=== PATIENT | female | born 1975 | race Caucasian/White ===

== ENCOUNTER 2021-05-22 09:51 | Observation (INO) | payer OTHER, SELFPAY ==
[~2021-05-22] VITALS: Ht 162.6 cm; Wt 90.7 kg
[2021-05-22 10:00] VITALS: BP 138/94
--- NOTE | 2021-05-22 10:08 | NUR ---
PT AMBULATED TO ER BED 5.
--- NOTE | 2021-05-22 10:10 | NUR ---
pt ambulated to bed 05.
--- NOTE | 2021-05-22 10:12 | NUR ---
46 y/o female c/o chest pain x 30 minutes while [address] home from work. Pt states pain 7/10 describes as pressure/constant, radiating down left arm. +Lightheadedness, +tingling/numbness to left hand Denies N/V, dizziness, fever/chills. Reports family history of heart attacks. Denies PMH Allergies: Morphine
--- NOTE | 2021-05-22 10:52 | NUR ---
Dr. Zapata at pt bedside for further evaluation.
[2021-05-22] MEDS ORDERED: NITROGLYCERIN 0.4 MG TAB SL ONE (11:00)
[2021-05-22] MEDS ORDERED: ASPIRIN 325 MG TAB PO ONE (11:00)
--- NOTE | 2021-05-22 11:08 | NUR ---
pyrotechnician at pt bedside.
--- NOTE | 2021-05-22 11:14 | NUR ---
BP 102/54, HR 74. 2nd nitro SL given at this time. made aware.
[2021-05-22 11:20] LABS: BASOPHILS % (AUTO) 0.5 % (0.0-2.0); EOSINOPHILS # (AUTO) 0.1 K/uL (0-0.4); EOSINOPHILS % (AUTO) 1.9 % (0.0-4.0); HEMATOCRIT 25.2 % (36-48); HEMOGLOBIN 7.3 g/dL (12.0-16.0); LYMPHOCYTES # (AUTO) 1.4 K/uL (2.5-16.5); LYMPHOCYTES % (AUTO) 20.5 % (20.5-51.1); MEAN CORPUSCULAR HEMOGLOBIN 18 pg (27-31); MEAN CORPUSCULAR HGB CONC 29 g/dL (33-37); MEAN CORPUSCULAR VOLUME 62.4 fL (80-94); MONOCYTES # (AUTO) 0.5 K/uL (0.8-1.0); MONOCYTES % (AUTO) 7.5 % (1.7-9.3); NEUTROPHILS # (AUTO) 4.9 K/uL (1.8-7.7); NEUTROPHILS % (AUTO) 69.6 % (42.2-75.2); PLATELET COUNT (AUTO) 463 K/uL (140-450); RED BLOOD CELL COUNT(AUTO) 4.04 MIL/uL (4.20-5.40); RED CELL DISTRIBUTION WIDTH 19.5 % (11.6-13.7)
--- NOTE | 2021-05-22 11:21 | NUR ---
BP 107/59, HR 72. 3rd nitro SL given at this time. made aware.
--- NOTE | 2021-05-22 11:22 | NUR ---
X-RAY AT BEDSIDE
[2021-05-22 11:39] LABS: ALBUMIN 3.7 g/dL (3.4-5.0); ANION GAP 12.1 (8-16); CARBON DIOXIDE 27.8 mmol/L (21-32); CREATININE 0.8 mg/dL (0.6-1.3); POTASSIUM 3.9 mmol/L (3.5-5.1); TOTAL BILIRUBIN 0.3 mg/dL (0.0-1.0)
--- NOTE | 2021-05-22 12:00 | NUR ---
Pt resting in bed, HOB elevated, VSS, will continue to monitor.
--- NOTE | 2021-05-22 12:21 | NUR ---
DR CEE AT BEDSIDE REEVALUATING PATIENT
--- NOTE | 2021-05-22 12:43 | NUR ---
Spoke with [facility] labor union business representative Luh for authorization for admitting under observation at this time.
--- NOTE | 2021-05-22 12:56 | NUR ---
Collected AJGJIT TIRADO, walked to lab.
[2021-05-22] MEDS ORDERED: NACL 0.9% 1,000 ML IV ONE (13:00)
--- NOTE | 2021-05-22 13:26 | NUR ---
IV established to left AC 20G, good blood return. Provided lunch tray, HOB elevated, VSS, will continue to monitor.
--- NOTE | 2021-05-22 14:03 | NUR ---
Pt resting, HOB lowered, visible equal rise and fall, VSS, will continue to monitor.
--- NOTE | 2021-05-22 15:34 | NUR ---
Gave report to GABRIELA Lopez for pending admission 125A. ETA 10minutes.
[2021-05-22 15:43] VITALS: BP 124/52
--- NOTE | 2021-05-22 15:43 | NUR ---
RECEIVED PATIENT REPORT FROM ER NURSE VIA TELEPHONE. AWAITING FOR PATIENT TO ARRIVE IN 10 MINS
--- NOTE | 2021-05-22 15:43 | NUR ---
RECEIVED PATIENT FROM ER NURSE. PATIENT ADMITTED FOR CHEST PAIN, ANEMIA. PT IS AO X4, ABLE TO MAKE NEEDS KNOWN. RESPIRATIONS EVEN AND UNLABORED. ON ROOM AIR WITH O2 SATURATION AT 100%. NO DISTRESS NOTED. SKIN IS WARM, INTACT, DRY, AND NON-DIAPHORETIC. IV SITE ON LAC 20G. INFUSING NS @ 60 ML/HR. INTACT AND PATENT. ABD SOFT, FLAT, AND NON-DISTENDED. BOWEL SOUNDS ACTIVE IN ALL FOUR QUADRANTS. PATIENT IS UNDER OBSERVATIONS. PLAN OF CARE DISCUSSED. SAFETY PRECAUTIONS IN PLACE. BEDSIDE IN LOW POSITION. CALL LIGHT WITHIN REACH. WILL CONTINUE TO MONITOR.
--- NOTE | 2021-05-22 15:50 | NUR ---
Patient will be admitted to care of Dr. Nabeel Wiggins. Admited to telemetry. Will go to room 125A. Belongings list completed. Report to GABRIELA Lopez.
--- NOTE | 2021-05-22 16:30 | NUR ---
CARDIO MD AT PATIENT'S BEDSIDE DISCUSSING CXR AND LAB RESULTS WITH PATIENT.
--- NOTE | 2021-05-22 18:00 | NUR ---
VISITOR AT PATIENT'S BEDSIDE. PATIENT IS STABLE AND EATING DINNER. NO DISTRESS NOTED. WILL CONTINUE TO MONITOR.
--- NOTE | 2021-05-22 19:30 | NUR ---
ENDORSED TO KINESIOLOGIST NURSE FOR CONTINUITY OF CARE. PT IS STABLE.
[2021-05-22] MEDS ORDERED: POTASSIUM CHLORIDE 10 MEQ TABER PO PRN (19:45)
[2021-05-22] MEDS ORDERED: HYDROcodone/APAP 7.5/325 MG 1 TAB PO PRN (19:45)
[2021-05-22] MEDS: NACL 0.9% 1,000 ML IV SCH (19:45)
[2021-05-22] MEDS ORDERED: ZOLPIDEM 5 MG TAB PO PRN (19:45)
[2021-05-22] MEDS ORDERED: DOCUSATE SODIUM 100 MG GELCAP PO PRN (19:45)
[2021-05-22] MEDS ORDERED: guaiFENesin DM 200/20 MG-10 ML 10 ML UDC PO PRN (19:45)
[2021-05-22] MEDS ORDERED: ONDANSETRON 4 MG/2 ML VIAL IM/IVP PRN (19:45)
[2021-05-22] MEDS ORDERED: ACETAMINOPHEN 325 MG TAB PO PRN (19:45)
[2021-05-22] MEDS ORDERED: NITROGLYCERIN 0.4 MG TAB SL PRN (19:45)
[2021-05-22 20:00] VITALS: BP 115/47
--- NOTE | 2021-05-22 20:00 | NUR ---
RECEIVED BEDSIDE REPORT FROM DAY RN EARLIER REGARDING THE PATIENT FOR CONTINUITY OF CARE. RECEIVED PATIENT A/A/OX4, LAYING IN BED NOT IN ANY DISTRESS. NO COMPLAIN AT THIS TIME. PATIENT DENIES ANY CHEST PAIN, DIZZINESS AND PALPITATIONS. VSS, AFEBRILE, SATING 100% ON RA. PATIENT VERBALIZED UNDERSTANDING WITH POC. WILL CONTINUE MONITORING AND POC. CALL LIGHT WITHIN REACH.
[2021-05-22 21:05] LABS: CHOL/HDL RATIO 3.3 (1-4.5); FREE T4 (FREE THYROXINE) 0.79 ng/dL (0.76-1.46); MAGNESIUM 1.7 mg/dL (1.8-2.4); PHOSPHORUS 2.8 mg/dL (2.5-4.9); THYROID STIMULATING HORMONE 2.04 uIU/mL (0.34-3.74)
[2021-05-22 21:10] LABS: PROTHROMBIN TIME 9.7 secs (10.8-13.4)
[2021-05-22] MEDS: METOPROLOL 25 MG TAB PO SCH (21:18)
[2021-05-22] MEDS ORDERED: CRUSHER, PILL MC ONE (21:20)
--- NOTE | 2021-05-22 22:00 | NUR ---
ADMINISTERED ALL THE SCHEDULED MEDICATIONS ORDERED. EDUCATION REGARDING THE MEDICATIONS PROVIDED. NO ADVERSE DRUG REACTION NOTED AND NO COMPLAIN FROM THE PATIENT. WILL CONTINUE OBSERVATION.
[2021-05-23] VITALS: BP 98/53
--- NOTE | 2021-05-23 | NUR ---
PATIENT VITAL SIGNS STABLE, AFEBRILE, SATING 99% ON RA. SINUS BRADYCARDIA ON CARDIAC. MONITOR, HR-57. NO COMPLAIN OF PAIN AT THIS TIME. CALL LIGHT WITHIN REACH.
--- NOTE | 2021-05-23 02:00 | NUR ---
PATIENT ASLEEP AT THIS TIME. VISIBLE CHEST RISE AND FALL NOTED. NOT IN ANY DISTRESS AND NO COMPLAIN AT THIS TIME. SAFETY IN PLACED.
[2021-05-23] MEDS: NACL 0.9% 1,000 ML IV SCH ×2 (02:26→17:31)
[2021-05-23 04:00] VITALS: BP 110/56
--- NOTE | 2021-05-23 04:00 | NUR ---
PATIENT VITAL SIGNS STABLE, AFEBRILE, SATING 99% ON RA. SINUS BRADYCARDIA ON CARDIAC. MONITOR, HR-54. NO COMPLAIN OF PAIN AT THIS TIME. CALL LIGHT WITHIN REACH.
--- NOTE | 2021-05-23 06:30 | NUR ---
PATIENT STABLE. NO ACUTE EVENT THROUGHOUT THE NIGHT. NOT IN ANY DISTRESS AND NO COMPLAIN AT THIS TIME. ALL NEEDS ATTENDED CALL LIGHT WITHIN REACH. WILL ENDORSE THE PATIENT TO THE ONCOMING RN FOR CONTINUITY OF CARE.
[2021-05-23 06:37] LABS: BASOPHILS # (AUTO) 0.1 K/uL (0.00-0.22); EOSINOPHILS # (AUTO) 0.2 K/uL (0-0.4); EOSINOPHILS % (AUTO) 3.9 % (0.0-4.0); HEMATOCRIT 26.3 % (36-48); HEMOGLOBIN 7.5 g/dL (12.0-16.0); LYMPHOCYTES # (AUTO) 1.9 K/uL (2.5-16.5); LYMPHOCYTES % (AUTO) 34.3 % (20.5-51.1); MEAN CORPUSCULAR HEMOGLOBIN 18 pg (27-31); MEAN CORPUSCULAR HGB CONC 29 g/dL (33-37); MEAN CORPUSCULAR VOLUME 63.1 fL (80-94); MONOCYTES # (AUTO) 0.4 K/uL (0.8-1.0); MONOCYTES % (AUTO) 6.7 % (1.7-9.3); NEUTROPHILS # (AUTO) 3.1 K/uL (1.8-7.7); NEUTROPHILS % (AUTO) 54.1 % (42.2-75.2); PLATELET COUNT (AUTO) 419 K/uL (140-450); RED BLOOD CELL COUNT(AUTO) 4.17 MIL/uL (4.20-5.40); RED CELL DISTRIBUTION WIDTH 19.6 % (11.6-13.7); WHITE BLOOD COUNT (AUTO) 5.6 K/uL (4.8-10.8)
[2021-05-23 06:44] LABS: ANION GAP 12.2 (8-16); CARBON DIOXIDE 24.7 mmol/L (21-32); CREATININE 0.7 mg/dL (0.6-1.3); POTASSIUM 3.9 mmol/L (3.5-5.1)
--- NOTE | 2021-05-23 06:58 | NUR ---
PATIENT HAS BEEN SCREENED AND CATEGORIZED MODERATE NUTRITION RISK. PATIENT WILL BE SEEN WITHIN 3-5 DAYS OF ADMISSION. 05/25/21-05/27/21 SCOTT DINERO MS, RDN
--- NOTE | 2021-05-23 07:15 | NUR ---
RECEIVED BEDSIDE REPORT FROM NURSE FOR CONTINUITY OF CARE. PT IS AWAKE AND ALERT. A&OX4, SPEAKING APPROPRIATELY. ON RA WITH BREATHING UNLABORED. PT IS AMBULATORY INDEPENDENTLY. SKIN IS WARM, DRY, AND INTACT. IV IS IN THE LEFT AC 20 GAUGE RUNNING NS AT 60 ML PER HOUR PER ORDER. PT IS STABLE. PLAN OF CARE DISCUSSED.
--- NOTE | 2021-05-23 07:20 | NUR ---
ENDORSED THE PATIENT TO RN'S JAVIER AND LUKE FOR CONTINUITY OF CARE. PATIENT STABLE. SIGNING OFF.
[2021-05-23 08:00] VITALS: BP 100/44
[2021-05-23] MEDS: METOPROLOL 25 MG TAB PO SCH ×2 (09:00→20:58)
[2021-05-23] MEDS: ECOTRIN 81 MG TABEC PO SCH (09:05)
[2021-05-23] MEDS: PANTOPRAZOLE 40 MG TABEC PO SCH (09:06)
--- NOTE | 2021-05-23 09:30 | NUR ---
FAMILY AT BEDSIDE TALKING WITH PT. PT IS A&OX4. NO RESPIRATORY DISTRESS NOTED. PT DENIES PAIN. PT IS STABLE.
--- NOTE | 2021-05-23 10:10 | NUR ---
BREAKFAST TRAY WAS DELIVERED. PT IS NOW EATING BREAKFAST. NO DISTRESS NOTED. MORE FAMILY MEMBERS AT BEDSIDE VISITING.
[2021-05-23 12:00] VITALS: BP 110/49
--- NOTE | 2021-05-23 12:00 | NUR ---
PT IS AWAKE, TALKING AT BEDSIDE TO VISITORS. NO DISTRESS NOTED. PT DENIES CHEST PAIN OR DIZZINESS. NO SOB NOTED. PT IS STABLE.
[2021-05-23] MEDS: SODIUM FERRIC GLUCONATE 125 MG in NACL 0.9% 100 ML IV SCH (13:25)
--- NOTE | 2021-05-23 13:57 | NUR ---
PT IS STABLE. PT STATES SHE IS OKAY AT THIS TIME. BREATHING IS UNLABORED ON RA. IV FLUIDS ARE INFUSING ORDERED. BED IS IN THE LOWEST POSITION AND CALL LIGHT IS WITHIN REACH. WILL MONITOR.
--- NOTE | 2021-05-23 15:45 | NUR ---
PT IS SLEEPING. CHEST RISE AND FALL IS SYMMETRICAL. NO SIGN OF PAIN OR DISTRESS. IV FLUIDS ARE INFUSING ORDERED. PT IS STABLE.
[2021-05-23 16:00] VITALS: BP 106/49
--- NOTE | 2021-05-23 17:37 | NUR ---
ROUNDED ON PT. ASKED IF SHE HAD A BM YET TO COLLECT FOR OCCULT STOOL. PT DENIED HAVING A BM. PT IS STABLE AT THIS TIME. DENIES CHEST PAIN OR LIGHT HEADEDNESS. NO RESPIRATORY DISTRESS NOTED. FAMILY AT BEDSIDE. WILL MONITOR PT.
--- NOTE | 2021-05-23 19:27 | NUR ---
ENDORSED PT TO ARTIFICIAL LOG MACHINE OPERATOR NURSE FOR CONTINUITY OF CARE. PT IS STABLE AT THIS TIME. PLAN OF CARE DISCUSSED.
--- NOTE | 2021-05-23 19:28 | NUR ---
RECEIVED PATIENT REPORT FROM DAYSHIFT NURSE AT BEDSIDE. PATIENT IS AWAKE, RESTING COMFORTABLY ON THE BED, FAMILY MEMBER ON THE BEDSIDE. PATIENT ON ROOM AIR, NO SIGNS OF DISTRESS, SAFETY MEASURE IMPLEMENTED, CALL LIGHT WITHIN REACH.
[2021-05-23 20:00] VITALS: BP 107/44
[2021-05-23] MEDS ORDERED: ATORVASTATIN 20 MG TAB PO SCH (21:00)
--- NOTE | 2021-05-23 21:55 | NUR ---
SCHEDULED MEDICATIONS GIVEN, PT IS AWAKE, NO SIGNS OF DISTRESS, ON ROOM AIR, RESTING COMFORTABLY ON THE BED, SAFETY MEASURES IMPLEMENTED, AND CALL LIGHT WITHIN REACH.
[2021-05-24] VITALS: BP 114/51
--- NOTE | 2021-05-24 00:37 | NUR ---
SCHEDULED MEDICATION GIVEN, PATIENT ASLEEP, VITALS SIGNS STABLE, ROOM AIR, AFEBRILE, NO SIGNS OF DISTRESS, SAFETY MEASURES IMPLEMENTED, CALL LIGHT WITHIN REACH.
--- NOTE | 2021-05-24 02:00 | NUR ---
PATIENT ASLEEP, AFEBRILE, ROOM AIR, NO SIGNS OF DISTRESS, SAFETY MEASURE IMPLEMENTED, CALL LIGHT WITHIN REACH.
[2021-05-24 04:00] VITALS: BP 104/42
--- NOTE | 2021-05-24 04:00 | NUR ---
PATIENT VITAL SIGNS, STABLE, AFEBRILE, SATING 96% ON RA. SINUS BRADYCARDIA ON SUPERVISOR IN CHARGE, HR- 57. NO COMPLAIN OF PAIN AT THIS TIME. CALL LIGHT WITHIN REACH.
--- NOTE | 2021-05-24 06:10 | NUR ---
NO ACUTE EVENT THROUGHOUT THE NIGHT. PATIENT STABLE. NOT IN ANY DISTRESS AND NO COMPLAIN AT THIS TIME. ALL NEEDS ATTENDED. CALL LIGHT WITHIN REACH. WILL ENDORSE THE PATIENT TO THE ONCOMING RN FOR CONTINUITY OF CARE.
[2021-05-24 06:20] LABS: ANION GAP 11.5 (8-16); CARBON DIOXIDE 25.1 mmol/L (21-32); CREATININE 0.7 mg/dL (0.6-1.3); POTASSIUM 3.6 mmol/L (3.5-5.1)
[2021-05-24 06:47] LABS: BASOPHILS % (AUTO) 0.5 % (0.0-2.0); EOSINOPHILS # (AUTO) 0.2 K/uL (0-0.4); EOSINOPHILS % (AUTO) 2.9 % (0.0-4.0); HEMATOCRIT 25.9 % (36-48); HEMOGLOBIN 7.3 g/dL (12.0-16.0); LYMPHOCYTES % (AUTO) 36.9 % (20.5-51.1); MEAN CORPUSCULAR HEMOGLOBIN 18 pg (27-31); MEAN CORPUSCULAR HGB CONC 28 g/dL (33-37); MEAN CORPUSCULAR VOLUME 64.1 fL (80-94); MONOCYTES # (AUTO) 0.4 K/uL (0.8-1.0); MONOCYTES % (AUTO) 8.3 % (1.7-9.3); NEUTROPHILS # (AUTO) 2.8 K/uL (1.8-7.7); NEUTROPHILS % (AUTO) 51.4 % (42.2-75.2); PLATELET COUNT (AUTO) 416 K/uL (140-450); RED BLOOD CELL COUNT(AUTO) 4.04 MIL/uL (4.20-5.40); RED CELL DISTRIBUTION WIDTH 20.1 % (11.6-13.7); WHITE BLOOD COUNT (AUTO) 5.4 K/uL (4.8-10.8)
[2021-05-24 07:10] LABS: T4 (THYROXINE) 7.9 ug/dL (4.5-12.0)
--- NOTE | 2021-05-24 07:30 | NUR ---
RECEIVED ENDORSEMENT FROM SOAP MIXER NURSE. PT APPEARS TO BE ASLEEP. NO S/S OF DISTRESS. ALL SAFETY MEASURES IN PLACE. CALL LIGHT WITHIN REACH.
[2021-05-24 08:00] VITALS: BP 140/77
[2021-05-24] MEDS: METOPROLOL 25 MG TAB PO SCH (09:00)
[2021-05-24] MEDS: ECOTRIN 81 MG TABEC PO SCH (09:00)
[2021-05-24] MEDS: PANTOPRAZOLE 40 MG TABEC PO SCH (09:02)
[2021-05-24 09:06] LABS: FOLIC ACID > 20.00 ng/mL (>3.0)
--- NOTE | 2021-05-24 09:08 | NUR ---
METOPROLOL HELD PER PARAMETERS. HR 59. CALL LIGHT WITHIN REACH. ALL SAFETY MEASURES IN PLACE.
--- NOTE | 2021-05-24 09:18 | NUR ---
PATIENT EDUCATED ON FOBT EXAM AND STOOL COLLECTION PT VERBALIZED UNDERSTANDING.
--- NOTE | 2021-05-24 09:21 | NUR ---
PT OFFERED PRN COLACE. PT REFUSED PT EDUCATED AND VERBALIZED UNDERSTANDING . PT STATES SHE WILL WAIT TO SEE IF SHE CAN HAVE BM. ALL SAFETY MEASURES IN PLACE.
[2021-05-24] MEDS ORDERED: FERR325E14 PO (10:10)
--- NOTE | 2021-05-24 11:26 | NUR ---
PT IS SLEEPING. CHEST RISE AND FALL IS SYMMETRICAL. NO SIGN OF PAIN OR DISTRESS. ALL SAFETY MEASURES IN PLACE.
[2021-05-24 12:00] VITALS: BP 112/50
[2021-05-24] MEDS: SODIUM FERRIC GLUCONATE 125 MG in NACL 0.9% 100 ML IV SCH (12:15)
[2021-05-24 12:59] LABS: FERRITIN 10 ng/mL (15 - 150)
[2021-05-24 13:00] LABS: TRANSFERRIN 418 mg/dL (200 - 370)
--- NOTE | 2021-05-24 13:08 | NUR ---
PATIENT DISCHARGE INSTRUCTIONS GIVEN. PT VERBALIZED UNDERSTANDING FOR CONTINUITY OF CARE. IV REMOVED. CANULA INTACT. TELE MONITOR RETURNED. ALL BELONGINGS GATHERED BY PATIENT.
--- NOTE | 2021-05-24 15:35 | NUR ---
PT LEFT UNIT VIA WHEELCHAIR. PT AMBULATED TO PRIVATE VEHICLE TOLERATED WELL. PT IN STABLE CONDITION. ARM BANDS REMOVED
== END 2021-05-24 14:40 | disposition home or self-care (01) ==
LOC: MED 09:51 → MTU 13:02 → MMU 15:41
PROVIDERS: ADMIT Family Medicine; ATTEND Family Medicine
DX: R07.89 Other chest pain (principal); Z20.822 Contact with and (suspected) exposure to COVID-19; D64.9 Anemia, unspecified; E78.5 Hyperlipidemia, unspecified; E83.42 Hypomagnesemia; Z79.899 Other long term (current) drug therapy
CPT/HCPCS: 36415; 71045; 80048; 80053; 80061; 82150; 82607; 82728; 82746; 83036; 83540; 83690; 83735; 83880; 84100; 84436; 84439; 84443; 84479; 84484; 85025; 85045; 85610; 85730; 87081; 87426; 93005; 93307; 96361; 96365; 96366; 96372; 99285; G0378; J1644; J2916; 96360